=== PATIENT | male | born 1995 | race Caucasian/White ===

== ENCOUNTER → 2018-08-14 | Outpatient (CLI) | payer BC, OTHER ==
[2018-08-15 10:26] LABS: HEPATITIS B SURFACE ANTIGEN NEGATIVE (NEGATIVE); HIV 1&2 SCREEN CENTAUR NEGATIVE (NEGATIVE)
== END ==
LOC: M LABDRWAD 17:48
PROVIDERS: ATTEND Physician Assistant
DX: Z02.5 Encounter for examination for participation in sport (principal)
CPT/HCPCS: 36415; 87340; 87389; G0472